=== PATIENT | male | born 1930 | race Caucasian/White ===

== ENCOUNTER 2016-07-10 11:11 | Day surgery (SDC) | payer BC, OTHER ==
[~2016-07-10 11:11] MED LIST: COUM4TAB7 PO; PRIN5TAB PO; PROS5TAB2 PO
[2016-07-10] MEDS ORDERED: PROS5TAB PO (11:52)
[2016-07-10] MEDS ORDERED: AMLO10TA2 PO (11:52)
[2016-07-10] MEDS ORDERED: PRAD150C PO (11:52)
[2016-07-10] MEDS ORDERED: LISI-519 PO (11:52)
[2016-07-10] MEDS ORDERED: PRIM50TA5 PO (11:52)
[2016-07-10] MEDS ORDERED: AMBI5TAB PO (11:52)
--- NOTE | 2016-07-11 08:24 | EKG ---
Date Performed: 07/10/2016 Time Performed: 11:38:00 PTAGE: 85 years EKG: Atrial fibrillation. Possible left ventricular hypertrophy Septal and lateral ST-T changes are probably due to ventricular hypertrophy Abnormal ECG PREVIOUS TRACING : 06/02/2008 06.43 DOCTOR: Eber Almaraz Interpretating Date/Time 07/11/2016 08:23:23
--- NOTE | 2016-07-11 20:38 | EKG ---
Date Performed: 07/10/2016 Time Performed: 14:42:18 PTAGE: 85 years EKG: Sinus bradycardia with borderline 1st degree A-V block Consider left atrial abnormality Sep xin and lateral ST-T changes are nonspecific When compared to previous tracing, sinus Bradycardia has Replaced atrial fibrillation. Borderline ECG PREVIOUS TRACING : 07/10/2016 11.38 DOCTOR: Vu Tapia Interpretating Date/Time 07/11/2016 20:36:41
--- NOTE | 2016-07-12 11:24 | MR ---
cc: SAMUEL ALTMAN DATE 07/10/2016 INDICATIONS Atrial fibrillation PROCEDURE PERFORMED DC cardioversion PROCEDURE After the patient was sedated by Anesthesia, a 200 joule biphasic shock was delivered and converted the patient into sinus rhythm. The patient remained stable and was discharged home in stable condition. DIAGNOSIS Successful cardioversion of atrial flutter/fibrillation. DISPOSITION Mr. Boss will continue his current medical program including anticoagulation. I will see him back for followup in our office after discharge. MD ABRAHAN Sheikh/ESTRELLITA /2:37 PM /11:22 AM [email or web address]
== END 2016-07-10 15:00 | disposition home or self-care (01) ==
LOC: HDOC 11:11 → HDIC 11:12 → HDOC 15:00
PROVIDERS: ATTEND Internal Medicine Interventional Cardiology
DX: I48.0 Paroxysmal atrial fibrillation (principal)
CPT/HCPCS: 92960; 93005